=== PATIENT | male | born 1950 | race Caucasian/White ===

== ENCOUNTER 2022-08-25 14:12 | Emergency (ER) | payer MEDICARE, OTHER ==
[2022-08-25 14:51] VITALS: PULSE 66; TEMP 98.4
[2022-08-25] MEDS ORDERED: HYDROmorphone 1 MG/ML 1 ML SYRINGE IM STA (15:11)
--- NOTE | 2022-08-25 15:21 | ED ---
Male Urogenital HPI - General Chief complaint: Urogenital Stated complaint: Testicle Pain Right Time Seen by Provider: 08/25/22 14:46 Source: patient, RN notes reviewed Mode of arrival: ambulatory Limitations: no limitations - History of Present Illness Initial comments: This a 71-year-old male presents emergency Department chief complaint of scrotal pain. Patient was seen in urgent care sent here for further evaluation. Patient states that he started having pain a few days ago states that increased swelling and redness. Patient states she does self cath he states she's been Having for 6 years. He has no abdominal pain no flank pain he states is only right-sided scrotal pain and swelling. - Related Data Previous Rx's Medication Instructions Recorded Levofloxacin [Levaquin] 500 mg PO DAILY #10 tab 08/25/22 Allergies Allergy/AdvReac Type Severity Reaction Status Date / Time venom-honey bee Allergy Severe passed out Verified 08/25/22 14:51 [bee venom (honey bee)] propoxyphene HCl Allergy Swelling Verified 08/25/22 14:51 [From Darvon] Review of Systems ROS Statement: Those systems with pertinent positive or pertinent negative responses have been documented in the HPI. ROS Other: All systems not noted in ROS Statement are negative. Past Medical History Past Medical History: Skin Disorder Additional Past Medical History / Comment(s): blood in urine, constipation, open wound above left ankle, swollen testicles. History of Any Multi-Drug Resistant Organisms: None Reported Additional Past Surgical History / Comment(s): mult surgery for fx left lower leg Past Anesthesia/Blood Transfusion Reactions: No Reported Reaction Past Psychological History: No Psychological Hx Reported Past Alcohol Use History: Rare Past Drug Use History: None Reported - Past Family History Mother Family Medical History: No Reported History General Exam Limitations: no limitations General appearance: alert, in no apparent distress Head exam: Present: atraumatic, normocephalic, normal inspection Eye exam: Present: normal appearance, PERRL, EOMI. Absent: scleral icterus, conjunctival injection, periorbital swelling ENT exam: Present: normal exam, normal oropharynx, mucous membranes moist Neck exam: Present: normal inspection, full ROM. Absent: tenderness, meningismus, lymphadenopathy Respiratory exam: Present: normal lung sounds bilaterally. Absent: respiratory distress, wheezes, rales, rhonchi, stridor Cardiovascular Exam: Present: regular rate, normal rhythm, normal heart sounds. Absent: systolic murmur, diastolic murmur, rubs, gallop, clicks GI/Abdominal exam: Present: soft, normal bowel sounds. Absent: distended, tenderness, guarding, rebound, rigid exam: Present: testicular tenderness, scrotal swelling. Absent: normal inspection Back exam: Absent: CVA tenderness (R), CVA tenderness (L) Course Vital Signs 08/25/22 14:46 Temperature 98.4 F Pulse Rate 66 Respiratory 18 Rate Blood Pressure 158/94 O2 Sat by Pulse 100 Oximetry Medical Decision Making - Medical Decision Making Was pt. sent in by a medical professional or institution (, WILL, DOUBLE CORNER CUTTER, urgent care, hospital, or usp...) When possible be specific @ -Urgent care Did you speak to anyone other than the patient for history (EMS, parent, family, police, friend...)? What history was obtained from this source @ -[No] Did you review nursing and triage notes (agree or disagree)? Why? @ -[I reviewed and agree with nursing and triage notes] Were old charts reviewed (outside hosp., previous admission, EMS record, old EKG, old radiological studies, urgent care reports/EKG's, usp records)? Report findings @ -[No old charts were reviewed] Differential Diagnosis (chest pain, altered mental status, abdominal pain women, abdominal pain men, vaginal bleeding, weakness, fever, dyspnea, syncope, headache, dizziness, GI bleed, back pain, seizure, CVA, palpatations, mental health, musculoskeletal)? @ -[Epididymitis, testicular torsion, hydrocele, varicocele] EKG interpreted by me (3pts min.). @ -[None] X-rays interpreted by me (1pt min.). @ -[None done] CT interpreted by me (1pt min.). @ -[None done] U/S interpreted by me (1pt. min.). @ -[Ultrasound shows right-sided hydrocele, epididymitis] What testing was considered but not performed or refused? (CT, X-rays, U/S, labs)? Why? @ -[None] What meds were considered but not given or refused? Why? @ -[None] Did you discuss the management of the patient with other professionals (professionals i.e. , PA, DOUBLE CORNER CUTTER, lab, RT, psych nurse, social welfare clerk, staff climate scientist, teacher, community cultural development officer, outsole caser)? Give summary @ -[No] Was smoking cessation discussed for >3mins.? @ -[No] Was critical care preformed (if so, how long)? @ -[No] Were there social determinants of health that impacted care today? How? (Homelessness, low income, unemployed, alcoholism, drug addiction, transportation, low edu. Level, literacy, decrease access to med. care, long term, rehab)? @ -[No] Was there de-escalation of care discussed even if they declined (Discuss DNR or withdrawal of care, Hospice)? DNR status @ -[No] What co-morbidities impacted this encounter? (DM, HTN, Smoking, COPD, CAD, Cancer, CVA, ARF, Chemo, Hep., AIDS, mental health diagnosis, sleep apnea, morbid obesity)? @ -[None] Was patient admitted / discharged? Hospital course, mention meds given and route, prescriptions, significant lab abnormalities, going to OR and other pertinent info. @ -[Discharged patient has evidence of epididymitis, UTI with hydrocele. Patient was given Rocephin, discharged on oral antibiotics and pain control patient will follow-up with urology.] Undiagnosed new problem with uncertain prognosis? @ -[No] Drug Therapy requiring intensive monitoring for toxicity (Heparin, Nitro, Insulin, Cardizem)? @ -[No] Were any procedures done? @ -[No] Diagnosis/symptom? @ -[UTI, epididymitis, hydrocele] Acute, or Chronic, or Acute on Chronic? @ -Acute Uncomplicated (without systemic symptoms) or Complicated (systemic symptoms)? @ -Uncomplicated Side effects of treatment? @ -[No] Exacerbation, Progression, or Severe Exacerbation? @ -[No] Poses a threat to life or bodily function? How? (Chest pain, [place], [place], pneumonia, PE, COPD, DKA, ARF, appy, cholecystitis, CVA, Diverticulitis, Homicidal, Suicidal, threat to staff... and all critical care pts) @ -[No] - Lab Data Lab Results 08/25/22 Range/Units 15:36 Urine Color Yellow Urine Appearance Cloudy (Clear) Urine pH 7.5 (5.0-8.0) Ur Specific [place] 1.015 (1.001-1.035) Urine Protein 1+ H (Negative) Urine Glucose (UA) Negative (Negative) Urine Ketones Negative (Negative) Urine Blood Trace H (Negative) Urine Nitrite Negative (Negative) Urine Bilirubin Negative (Negative) Urine Urobilinogen <2.0 (<2.0) mg/dL Ur Leukocyte Esterase Large H (Negative) Urine RBC 2 (0-5) /hpf Urine WBC 173 H (0-5) /hpf Urine Mucus Rare H (None) /hpf Disposition Clinical Impression: Epididymitis, Hydrocele, UTI (urinary tract infection) Disposition: HOME SELF-CARE Condition: Stable Instructions (If sedation given, give patient instructions): Urinary Tract Infection in Men (ED), Epididymitis (ED) Additional Instructions: Please return to the Emergency Department if symptoms worsen or any other concerns. Prescriptions: Levofloxacin [Levaquin] 500 mg PO DAILY #10 tab Is patient prescribed a controlled substance at d/c from ED?: No Referrals: None,Stated [Primary Care Provider] - 1-2 days Evan Agustin MD [STAFF PHYSICIAN] - 1-2 days Time of Disposition: 16:23
[2022-08-25 16:06] LABS: Appearance,Urine Cloudy (Clear); Bilirubin,Urine Negative (Negative); Blood,Urine Trace (Negative); Color,Urine Yellow; Glucose,Urine (UA) Negative (Negative); Ketones,Urine Negative (Negative); Leukocyte Esterase,Urine Large (Negative); Mucus,Urine Rare /hpf; Nitrite,Urine Negative (Negative); PH, Urine 7.5 (5.0-8.0); Protein,Urine 1+ (Negative); RBC,Urine 2 /hpf (0-5); Specific Gravity,Urine 1.015 (1.001-1.035); Urobilinogen,Urine <2.0 mg/dL (<2.0); WBC,Urine 173 /hpf (0-5)
--- NOTE | 2022-08-25 16:17 | US ---
EXAMINATION TYPE: US scrotum with doppler. Grayscale and color Doppler Duplex imaging performed of t cristian scrotum. DATE OF EXAM: 08/25/2022 COMPARISON: NONE CLINICAL INDICATION: Male, 71 years old with history of pain; Right testicular pain and swelling EXAM MEASUREMENTS: TESTICLES: Right Testicle: 3.6 x 2.8 x 3.2 cm Left Testicle: 3.9 x 2.0 x 3.0 cm EPIDIDYMIS HEAD: Right Epididymis: 1.9 cm, 0.8cm cyst Left Epididymis: 1.7 cm, 0.6cm cyst Doppler performed to assess for testicular vascularity; good bilateral color flow and waveforms are s een. There is no evidence of testicular torsion. Presence of hydroceles: right - 5.2cm, left 2.8cm Presence of varicoceles: no 1.4 x 1.7 x 2.6cm vascular hypoechoic area inferior to right testicle, possibly within epididymis IMPRESSION: 1. Correlate for right-sided epididymitis. 2. Right-sided hydrocele.
[2022-08-25] MEDS ORDERED: cefTRIAXone 1,000 MG VIAL (IM USE) IM STA (16:19)
[2022-08-25] MEDS ORDERED: ACET/COD 300 MG/30 MG STARTER PACK 6 TAB BTL PO STA (16:23)
[2022-08-25 16:56] VITALS: BP 140/87; RESP 16
== END 2022-08-25 16:56 | disposition home or self-care (01) ==
LOC: EC 14:12
DX: N39.0 Urinary tract infection, site not specified (principal); N43.3 Hydrocele, unspecified; N45.1 Epididymitis; Z91.030 Bee allergy status; Z88.8 Allergy status to other drugs, medicaments and biological substances
CPT/HCPCS: 81001; 87086; 93975; 76870; 99284; 96372 ×2; J0696; J1170

== ENCOUNTER 2023-05-02 08:52 | Emergency (ER) | payer MEDICARE ==
[2023-05-02] MEDS ORDERED: VANCOMYCIN IV PER PHARMACY 1 EACH MISC MISCELLANE PRN (09:22)
--- NOTE | 2023-05-02 09:27 | ED ---
General Adult HPI - General Chief complaint: Skin/Abscess/Foreign Body Stated complaint: Leg pain/redness Time Seen by Provider: 05/02/23 09:02 Source: patient, RN notes reviewed, old records reviewed Mode of arrival: ambulatory Limitations: no limitations - History of Present Illness Initial comments: Is a 72-year-old male who presents emergency department complaining of acute on chronic left lower extremity wound. Has a history of a chronic left leg wound. Has a remote history of requiring surgery on the left tib-fib. States he always has a wound on there however it opened up last week when he knocked into something and it seems to be having purulent discharge with surrounding redness. Has some surrounding pain as well. Denies any chest pain or shortness of breath. Denies any abdominal pain, nausea, vomiting. Denies any other acute co mplaints at this time. Presents for evaluation. Does not have a PCP. Unknown last tetanus. - Related Data Previous Rx's Medication Instructions Recorded Cephalexin [Keflex] 500 mg PO Q12HR 10 Days #20 cap 05/02/23 Sulfamethox-Tmp 800-160Mg [Bactrim 1 tab PO Q12HR 10 Days #20 tab 05/02/23 DS 800-160 mg] Allergies Allergy/AdvReac Type Severity Reaction Status Date / Time venom-honey bee Allergy Severe passed out Verified 05/02/23 11:33 [bee venom (honey bee)] propoxyphene HCl Allergy Swelling Verified 05/02/23 11:33 [From Darvon] Review of Systems ROS Statement: Those systems with pertinent positive or pertinent negative responses have been documented in the HPI. Review of Systems: CONST: Denies fever EYES: Denies blurry vision ENT: Denies nasal congestion C/V: Denies Chest pain RESP: Denies shortness of breath GI: Denies abdominal pain : Denies dysuria SKIN: Endorses open leg wound MSK: Denies joint pain. NEURO: Denies headache ROS Other: All systems not noted in ROS Statement are negative. Past Medical History Past Medical History: Skin Disorder Additional Past Medical History / Comment(s): blood in urine, constipation, open wound above left ankle, swollen testicles. History of Any Multi-Drug Resistant Organisms: None Reported Additional Past Surgical History / Comment(s): mult surgery for fx left lower leg Past Anesthesia/Blood Transfusion Reactions: No Reported Reaction Past Psychological History: No Psychological Hx Reported Smoking Status: Former smoker Past Alcohol Use History: Rare Past Drug Use History: None Reported - Past Family History Mother Family Medical History: No Reported History General Exam - General Exam Comments Initial Comments: General: Appears in no acute distress. HEAD: Normal with no signs of head trauma. EYES: PERRLA, EOMI, conjunctiva normal, no discharge. ENT: Hearing grossly intact, normal oropharynx. RESPIRATORY: Clear breath sounds bilaterally. No wheezes, rales, or rhonchi. C/V: Regular rate and rhythm. S1 and S2 auscultated, no edema, peripheral pulses 2+ and intact throughout ABD: Abd is soft, nontender, nondistended EXT: Chronic left lower extremity deformity secondary to prior injury and surgery. SKIN: Erythematous chronic left lower extremity leg wound over the anterior tibia. Approximate size of a quarter open wound with some purulent discharge. No obvious crepitus appreciated. NEURO: Alert and oriented x 4. No focal deficits. Limitations: no limitations Course Vital Signs 05/02/23 05/02/23 05/02/23 08:53 12:11 12:35 Temperature 98.7 F 98.4 F 98.3 F Pulse Rate 91 61 73 Respiratory 18 16 18 Rate Blood Pressure 136/96 121/71 127/89 O2 Sat by Pulse 98 97 97 Oximetry 05/02/23 13:30 Temperature 98 F Pulse Rate 67 Respiratory 18 Rate Blood Pressure 146/80 O2 Sat by Pulse 99 Oximetry Medical Decision Making - Medical Decision Making Was pt. sent in by a medical professional or institution (, PA, SUPERVISOR CHEMICAL, urgent care, hospital, or correction...) When possible be specific @ -No Did you speak to anyone other than the patient for history (EMS, parent, family, police, friend...)? What history was obtained from this source @ -No Did you review nursing and triage notes (agree or disagree)? Why? @ -I reviewed and agree with nursing and triage notes Were old charts reviewed (outside hosp., previous admission, EMS record, old EKG, old radiological studies, urgent care reports/EKG's, correction records)? Report findings @ -No old charts were reviewed Differential Diagnosis (chest pain, altered mental status, abdominal pain women, abdominal pain men, vaginal bleeding, weakness, fever, dyspnea, syncope, headache, dizziness, GI bleed, back pain, seizure, CVA, palpatations, mental health, musculoskeletal)? @ -Cellulitis, osteomyelitis, chronic leg wound. Abscess. This list is not all inclusive. EKG interpreted by me (3pts min.). @ -None done X-rays interpreted by me (1pt min.). @ -Tib-fib x-ray reveals no obvious evidence of osteomyelitis. CT interpreted by me (1pt min.). @ -None done U/S interpreted by me (1pt. min.). @ -None done What testing was considered but not performed or refused? (CT, X-rays, U/S, labs)? Why? @ -None What meds were considered but not given or refused? Why? @ -None Did you discuss the management of the patient with other professionals (zenia pino i.roger Turk, PA, SUPERVISOR CHEMICAL, lab, RT, psych nurse, director of social services, equipment man, teacher, executive officer, window caser)? Give summary @ -No Was smoking cessation discussed for >3mins.? @ -No Was critical care preformed (if so, how long)? @ -No Were there social determinants of health that impacted care today? How? (Homelessness, low income, unemployed, alcoholism, drug addiction, transportation, low edu. Level, literacy, decrease access to med. care, care home, rehab)? @ -No Was there de-escalation of care discussed even if they declined (Discuss DNR or withdrawal of care, Hospice)? DNR status @ -No What co-morbidities impacted this encounter? (DM, HTN, Smoking, COPD, CAD, Cancer, CVA, ARF, Chemo, Hep., AIDS, mental health diagnosis, sleep apnea, morbid obesity)? @ -None Was patient admitted / discharged? Hospital course, mention meds given and route, prescriptions, significant lab abnormalities, going to OR and other pertinent info. @ -Presents with acute on chronic leg wound. Appears to have cellulitis at this time. Will obtain x-ray of the site as well as cultures and basic labs. Patient be empirically given a dose of vancomycin here in the department. Patient was in agreement this plan. Vital signs are within acceptable limits. Patient's laboratory studies remarkable for a slight leukocytosis of 12.5. Patient has CKD and appears near baseline for his renal function. Lactic acid within normal limits. Imaging negative for any evidence of osteomyelitis. I discussed the results with the patient. He is currently receiving his IV vancomycin. I did offer admission for IV antibiotics however we both agree that it is appropriate at this time if the patient would like to go home we can trial him on oral antibiotics. He was in agreement this plan. Cultures were already sent. I provided him with contact information for PCPs as well as wound care. Patient was in agreement this plan. I will provide the patient with a prescription for Bactrim, Keflex. I instructed the patient to follow up with their PCP in the next 1-3 days.. I explained that the patient should return to the emergency department if they experience any worsening symptoms. Strict return precautions were discussed with the patient. The patient expressed understanding of these instructions. I answered all questions that the patient had. The patient was discharged home in good condition with their prescriptions and follow up information. Undiagnosed new problem with uncertain prognosis? @ -No Drug Therapy requiring intensive monitoring for toxicity (Heparin, Nitro, Insulin, Cardizem)? @ -No Were any procedures done? @ -No Diagnosis/symptom? @ -Leg wound, cellulitis Acute, or Chronic, or Acute on Chronic? @ -Acute on chronic Uncomplicated (without systemic symptoms) or Complicated (systemic symptoms)? @ -Uncomplicated Side effects of treatment? @ -None Exacerbation, Progression, or Severe Exacerbation] @ -No Poses a threat to life or bodily function? @ -No - Lab Data Result diagrams: 05/02/23 09:24 05/02/23 09:24 Lab Results 05/02/23 05/02/23 05/02/23 Range/Units 09:24 09: 09:24 WBC 12.5 H (3.8-10.6) k/uL RBC 4.07 L (4.30-5.90) m/uL Hgb 11.6 L (13.0-17.5) gm/dL Hct 35.7 L (39.0-53.0) % MCV 87.7 (80.0-100.0) fL MCH 28.4 (25.0-35.0) pg MCHC 32.4 (31.0-37.0) g/dL RDW 14.7 (11.5-15.5) % Plt Count 430 (150-450) k/uL MPV 7.7 Neutrophils % 80 % Lymphocytes % 10 % Monocytes % 7 % Eosinophils % 1 % Basophils % 0 % Neutrophils # 10.1 H (1.3-7.7) k/uL Lymphocytes # 1.2 (1.0-4.8) k/uL Monocytes # 0.9 (0-1.0) k/uL Eosinophils # 0.1 (0-0.7) k/uL Basophils # 0.0 (0-0.2) k/uL Sodium 137 (137-145) mmol/L Potassium 4.1 (3.5-5.1) mmol/L Chloride 108 H (98-107) mmol/L Carbon Dioxide 22 (22-30) mmol/L Anion Gap 7 mmol/L BUN 32 H (9-20) mg/dL Creatinine 1.72 H (0.66-1.25) mg/dL Est GFR (CKD-EPI)AfAm 46 (>60 ml/min/1.73 sqM) Est GFR (CKD-EPI)NonAf 39 (>60 ml/min/1.73 sqM) Glucose 102 H (74-99) mg/dL Plasma Lactic Acid Paulie 1.2 (0.7-2.0) mmol/L Calcium 8.9 (8.4-10.2) mg/dL Total Bilirubin 0.7 (0.2-1.3) mg/dL AST 16 L (17-59) U/L ALT 13 (4-49) U/L Alkaline Phosphatase 76 (38-126) U/L Total Protein 7.0 (6.3-8.2) g/dL Albumin 3.5 (3.5-5.0) g/dL Disposition Clinical Impression: Cellulitis, Leg wound, left Disposition: HOME SELF-CARE Condition: Fair Instructions (If sedation given, give patient instructions): Cellulitis (ED), Chronic Wounds (ED) Prescriptions: Sulfamethox-Tmp 800-160Mg [Bactrim DS 800-160 mg] 1 tab PO Q12HR 10 Days #20 tab Cephalexin [Keflex] 500 mg PO Q12HR 10 Days #20 cap Is patient prescribed a controlled substance at d/c from ED?: No Referrals: None,Stated [Primary Care Provider] - 1-2 days [facility] [NON-STAFF] - 1-2 days Forms: Area PCPs Time of Disposition: 12:06
[2023-05-02 09:41] LABS: Basophils % (A) 0 %; Eosinophils # (A) 0.1 k/uL (0-0.7); Eosinophils % (A) 1 %; HCT 35.7 % (39.0-53.0); HGB 11.6 gm/dL (13.0-17.5); Lymphocytes # (A) 1.2 k/uL (1.0-4.8); Lymphocytes % (A) 10 %; MCH 28.4 pg (25.0-35.0); MCHC 32.4 g/dL (31.0-37.0); MCV 87.7 fL (80.0-100.0); Mean Platelet Volume 7.7; Monocytes # (A) 0.9 k/uL (0-1.0); Monocytes % (A) 7 %; Neutrophils # (A) 10.1 k/uL (1.3-7.7); Neutrophils % (A) 80 %; Platelet Count 430 k/uL (150-450); RBC 4.07 m/uL (4.30-5.90); RDW 14.7 % (11.5-15.5); WBC 12.5 k/uL (3.8-10.6)
[2023-05-02 09:54] LABS: ALT 13 U/L (4-49); AST 16 U/L (17-59); African American GFR (CKD) 46 (>60 ml/min/1.73 sqM); Albumin 3.5 g/dL (3.5-5.0); Alkaline Phosphatase 76 U/L (38-126); Anion Gap 7 mmol/L; Blood Urea Nitrogen 32 mg/dL (9-20); Calcium 8.9 mg/dL (8.4-10.2); Carbon Dioxide 22 mmol/L (22-30); Chloride 108 mmol/L (98-107); Glucose 102 mg/dL (74-99); Non-African American GFR(CKD) 39 (>60 ml/min/1.73 sqM); Potassium 4.1 mmol/L (3.5-5.1); Sodium 137 mmol/L (137-145); Total Bilirubin 0.7 mg/dL (0.2-1.3)
[2023-05-02] MEDS: DIPH,PERTUS(ACELL)TETVAC-LF 0.5 ML VIAL IM ONE (10:03)
[2023-05-02] MEDS: VANCOMYCIN 1,500 MG in SODIUM CHLORIDE 0.9% 500 ML 500 ML IVPB STA (10:03)
[2023-05-02] MEDS: IBUPROFEN 800 MG TAB PO STA (10:04)
[2023-05-02] MEDS: SODIUM CHLORIDE 0.9% 1,000 ML IV STA (10:07)
--- NOTE | 2023-05-02 11:25 | XR ---
EXAMINATION TYPE: XR tibia fibula LT DATE OF EXAM: 05/02/2023 11:12 AM CLINICAL INDICATION:Male, 72 years old with history of wound. eval for osteo; COMPARISON: None TECHNIQUE: XR tibia fibula LT; tibia/fibula was examined in AP and lateral projections. FINDINGS/IMPRESSION: Remote fracture of the tibia and fibula. No evidence for osseous erosion at this time.
[2023-05-02 12:59] VITALS: RESP 18
[2023-05-02 14:02] VITALS: BP 146/80; PULSE 67; TEMP 98
[2023-05-03] MEDS ORDERED: VANCOMYCIN 1,500 MG in SODIUM CHLORIDE 0.9% 500 ML 500 ML IVPB SCH (10:00)
== END 2023-05-02 14:24 | disposition home or self-care (01) ==
LOC: EC 08:52
DX: S81.802A Unspecified open wound, left lower leg, initial encounter (principal); L03.116 Cellulitis of left lower limb; B95.62 Methicillin resistant Staphylococcus aureus infection as the cause of diseases classified elsewhere; Z23 Encounter for immunization; Z91.030 Bee allergy status; Z88.8 Allergy status to other drugs, medicaments and biological substances; Z87.891 Personal history of nicotine dependence; X58.XXXA Exposure to other specified factors, initial encounter
CPT/HCPCS: 99284; 96365; 96366 ×2; 90471; 36415; 80053; 83605; 85025; 87040; 87070; 87205; 87075; 87077; 87186; 73590; 90715; J3370

== ENCOUNTER → 2023-07-18 | Outpatient (CLI) | payer MEDICARE ==
--- NOTE | 2023-07-20 09:59 | US ---
EXAMINATION TYPE: US kidneys/renal and bladder DATE OF EXAM: 07/18/2023 COMPARISON: NONE CLINICAL INDICATION: Male, 72 years old with history of N18.32 CHRONIC KIDNEY DISEASE, STAGE 3B; CKD 3 patient does self cathter EXAM MEASUREMENTS: Right Kidney: 10.4 x 5.6 x 4.6 cm Left Kidney: 10.2 x 3.9 x 4.3 cm Right Kidney: Anechoic area upper pole 2.9 x 2.9 x 3.3 cm. Left Kidney: Anechoic area lower pole 2.3 x 2.3 x 2.9 cm. Bladder: Anechoic Bilateral Jets seen: no There is no evidence for hydronephrosis at this point in time. No nephrolithiasis is seen. No lidia s are identified. The urinary bladder is anechoic. Bilateral ureteral jets are seen. IMPRESSION: Renal cystic lesions. No solid lesion seen.
== END | disposition home or self-care (01) ==
LOC: RADUSWWP 15:45
PROVIDERS: ATTEND Family Medicine
DX: N18.32 Chronic kidney disease, stage 3b (principal); N28.9 Disorder of kidney and ureter, unspecified
CPT/HCPCS: 76770